=== PATIENT | male | born 1985 | race Caucasian/White ===

== ENCOUNTER 2016-10-16 14:26 | Emergency (ER) | payer OTHER ==
[~2016-10-16] VITALS: Ht 180.3 cm; Wt 75.0 kg
[2016-10-16 14:30] VITALS: Ht 180.3 cm; Wt 75.0 kg
--- NOTE | 2016-10-16 14:53 | ERD ---
ER Documentation Chief Complaint Date/Time DATE: 10/16/16 TIME: 14:50 Chief Complaint biba and lapd for heroin use in custody HPI 31-year-old male is brought in for medical clearance because he said that he used heroin prior to being arrested. He is the area approximately 2 hours ago. The police arrived patient was having intercourse with his girlfriend. He had no trauma and complains of no other physical symptoms. Please protocol he needs to be checked in the ER prior to going to senior living. He denies any medical problems. ROS All systems reviewed and are negative except as per history of present illness. Physical Exam Vitals Vital Signs Date Time Temp Pulse Resp B/P Pulse Ox O2 Delivery O2 Flow Rate FiO2 10/16/16 14:30 99.3 107 20 155/104 97 Physical Exam Const: [] No distress Head: Atraumatic Eyes: Normal Conjunctiva, pupils are approximately 3 minimal millimeters and reactive bilaterally, EOMI ENT: Normal External Ears, Nose and Mouth. Neck: Full range of motion..~ No meningismus. Resp: Clear to auscultation bilaterally Cardio: Regular rate and rhythm, no murmurs Abd: Soft, non tender, non distended. Normal bowel sounds Skin: No petechiae or rashes Back: No midline or flank tenderness Ext: No cyanosis, or edema Neur: Awake and alert and oriented 3, no focal deficits Psych: Normal Mood and Affect Procedures/MDM Medical clearance for senior living after heroin use. Patient is alert and oriented 3 with a normal neurological exam. Full physical exam was performed to look for any abnormalities. Second having small pupils the patient is well. Vital signs stable. I am going to discharge him to please custody with instructions to follow-up with primary care doctor in 2-3 days. He did spend time at the bedside discussing the risks of drug use with him. Departure Diagnosis: Primary Impression: Heroin use Condition: Stable Patient Instructions: Understanding Heroin Abuse and Addiction Referrals: COMMUNITY CLINICS YOU HAVE RECEIVED A MEDICAL SCREENING EXAM AND THE RESULTS INDICATE THAT YOU DO NOT HAVE A CONDITION THAT REQUIRES URGENT TREATMENT IN THE EMERGENCY DEPARTMENT. FURTHER EVALUATION AND TREATMENT OF YOUR CONDITION CAN WAIT UNTIL YOU ARE SEEN IN YOUR DOCTORS OFFICE WITHIN THE NEXT 1-2 DAYS. IT IS YOUR RESPONSIBILITY TO MAKE AN APPOINTMENT FOR FOLOW-UP CARE. IF YOU HAVE A PRIMARY DOCTOR --you should call your primary doctor and schedule an appointment IF YOU DO NOT HAVE A PRIMARY DOCTOR YOU CAN CALL OUR PHYSICIAN REFERRAL HOTLINE AT IF YOU CAN NOT AFFORD TO SEE A PHYSICIAN YOU CAN CHOSE FROM THE FOLLOWING THE [facility] [id number] [facility] [address] [facility] [address] [facility] [id number] [facility] [phone] [address] [facility]. [facility]. [address] Additional Instructions: Llame al doctor MAANA y roberto paty SHAILESH PARA DENTRO DE 2-3 MALAGON.Dgale a la secretaria que nosotros le instruimos hacer esta shailesh.Avise o llame si lu condicin se empeora antes de la shailesh. Regresa aqui si peor o no mejor. GERARDO DEXTER DO Oct 16, 2016 14:53
== END 2016-10-16 16:45 ==
LOC: E/R 14:26
DX: F11.90 Opioid use, unspecified, uncomplicated (principal)
CPT/HCPCS: 99283